=== PATIENT | male | born 1985 | race Caucasian/White ===

== ENCOUNTER → 2025-03-09 19:40 | Outpatient (CLI) | payer OTHER, SELFPAY ==
--- NOTE | 2025-03-09 | DI.MRI.S_ITS ---
PROCEDURE: MR SHOULDER LT WO CON INDICATIONS: SHOULDER Pain TECHNIQUE: Noncontrast oblique coronal T2 fast spin echo with fat saturation, oblique sagittal T1 spin echo and T2 fast spin echo with fat saturation, axial T1 spin echo and T2 fast spin echo with fat saturation through the shoulder. COMPARISON: None. FINDINGS: Image quality: Excellent. Rotator cuff: There is low-grade bursal surface tearing of the mid and posterior supraspinatus tendon at the humeral insertion site extending to the musculotendinous junction. Subscapularis, infraspinatus, and teres minor tendons are intact. No rotator cuff atrophy. Bones and bursae: No bone marrow contusions or fractures. Mild glenohumeral and acromioclavicular joint degeneration. Widening of the acromioclavicular interval. without an os acromiale. No pathologic subacromial-subdeltoid or subcoracoid bursal fluid is present. Capsule and soft tissues: There is linear high T2 signal intensity undercutting the anteroinferior, inferior, and posterior inferior labrum. Full-thickness biceps tendon tear is present. The rotator interval appears normal, without fibrosis. The coracohumeral ligament is normal in thickness. IMPRESSION: 1. Low-grade bursal surface tearing of the supraspinatus tendon. No full- thickness rotator cuff tear. 2. Acromioclavicular and glenohumeral joint osteoarthritis. 3. Acromioclavicular interval widening, possibly postsurgical . 4. Labral tearing. 5. Biceps tendon tear. Dictated by: Mei Dodson M.D. on 03/10/2025 at 13:19 Approved by: Mei Dodson M.D. on 03/10/2025 at 13:21
== END ==
LOC: MRI 19:42
PROVIDERS: Referring Provider Student in an Organized Health Care Education/Training Program; Visit Provider Student in an Organized Health Care Education/Training Program
DX: M75.112 Incomplete rotator cuff tear or rupture of left shoulder, not specified as traumatic (principal); M19.012 Primary osteoarthritis, left shoulder; S43.492A Other sprain of left shoulder joint, initial encounter; S46.212A Strain of muscle, fascia and tendon of other parts of biceps, left arm, initial encounter; M25.512 Pain in left shoulder
CPT/HCPCS: 73221